=== PATIENT | male | born 1950 | race Caucasian/White ===

== ENCOUNTER 2024-11-20 11:05 | Inpatient (IN) | payer MEDICARE, OTHER ==
[~2024-11-20] VITALS: Ht 157.5 cm; Wt 57.2 kg
[2024-11-20] MEDS: IV NS 0.9% 500 ML BAG IV ONE (11:39)
[2024-11-20 11:52] LABS: BASOPHILS # (AUTO) 0.1 K/uL (0.0-0.2); BASOPHILS % (AUTO) 0.6 % (0.0-2.0); EOSINOPHILS # (AUTO) 0.1 K/uL (0.0-0.7); EOSINOPHILS % (AUTO) 1.6 % (0.0-6.0); HEMATOCRIT 42 % (39-51); HEMOGLOBIN 14.1 g/dL (13.5-17.5); LYMPHOCYTES % (AUTO) 12.4 % (20.0-44.0); MEAN CORPUSCULAR HEMOGLOBIN 30 PG (26.0-33.0); MEAN CORPUSCULAR HGB CONC 34 g/dl (31.0-36.0); MEAN CORPUSCULAR VOLUME 89 fL (80-96); MONOCYTES # (AUTO) 0.8 K/uL (0.1-1.30); MONOCYTES % (AUTO) 9.6 % (2.0-12.0); NEUTROPHILS # (AUTO) 6.1 K/uL (1.8-8.9); NEUTROPHILS % (AUTO) 75.8 % (43.0-81.0); PLATELET COUNT (AUTO) 199 K/uL (150-450); RED BLOOD CELL COUNT(AUTO) 4.74 MIL/uL (4.5-6.0); RED CELL DISTRIBUTION WIDTH 13.5 % (11.5-15.0); WHITE BLOOD COUNT (AUTO) 8.1 K/uL (4.3-11.0)
[2024-11-20 12:09] LABS: CALCIUM, SERUM 9.5 mg/dL (8.5-10.1); CARBON DIOXIDE 33 mmol/L (21-32); CHLORIDE 96 mmol/L (98-107); CREATININE 4.2 mg/dL (0.6-1.3); GLUCOSE 115 mg/dL (74-106); POTASSIUM 3.3 mmol/L (3.5-5.1); SODIUM SERUM 137 mmol/L (136-145); UREA NITROGEN, BLOOD 22 mg/dL (7-18)
[2024-11-20] MEDS ORDERED: DORZ10DR11 LEFTEYE (12:09)
[2024-11-20] MEDS ORDERED: FOLI0.8T2 PO (12:09)
[2024-11-20] MEDS ORDERED: DIFL5DRO LEFTEYE (12:09)
[2024-11-20] MEDS ORDERED: MIDO10TA PO (12:09)
[2024-11-20] MEDS ORDERED: ERYT3.5O9 LEFTEYE (12:09)
[2024-11-20] MEDS ORDERED: BRIM5DRO3 LEFTEYE (12:09)
[2024-11-20] MEDS ORDERED: VITA1TAB20 PO (12:09)
[2024-11-20] MEDS ORDERED: CARV12.5 PO (12:09)
[2024-11-20] MEDS ORDERED: GABA-532 PO (12:09)
[2024-11-20] MEDS ORDERED: SEVE800T8 PO (12:09)
[2024-11-20] MEDS ORDERED: METO25TA6 PO (12:09)
[2024-11-20] MEDS ORDERED: Z GUARD REMEDY 4 OZ OINT TP PRN (14:30)
[2024-11-20] MEDS ORDERED: ONDANSETRON HCL/PF 4 MG/2 ML VIAL IVP PRN (14:30)
[2024-11-20] MEDS ORDERED: ACETAMINOPHEN 325 MG TABLET PO PRN (14:30)
[2024-11-20] MEDS ORDERED: ZOLPIDEM TARTRATE 5 MG TABLET PO PRN (14:30)
[2024-11-20 14:51] VITALS: BP 146/66; TEMP 97.9; O2SAT 99
[2024-11-20 16:48] VITALS: BP_SYST 114; BP_SYST 83; BP_SYST 89; BP_DIAS 60; BP_DIAS 62; BP_DIAS 68
[2024-11-20] MEDS: GABAPENTIN 100 MG CAPSULE PO SCH (17:19)
[2024-11-20] MEDS: SEVELAMER CARBONATE 800 MG TABLET PO SCH (17:19)
[2024-11-20 20:00] VITALS: BP_SYST 119; BP_SYST 134; BP_SYST 97; BP_DIAS 54; BP_DIAS 63; BP_DIAS 74; TEMP 97.5; O2SAT 99
[2024-11-20] MEDS: ERYTHROMYCIN BASE OPHTH 3.5 GM TUBE LEFTEYE SCH (21:44)
[2024-11-21] VITALS: BP_SYST 119; BP_SYST 120; BP_DIAS 63; BP_DIAS 65; TEMP 97.5; TEMP 98.4; O2SAT 95; O2SAT 99
[2024-11-21 07:01] LABS: BASOPHILS % (AUTO) 0.8 % (0.0-2.0); EOSINOPHILS # (AUTO) 0.2 K/uL (0.0-0.7); EOSINOPHILS % (AUTO) 3.2 % (0.0-6.0); HEMATOCRIT 40 % (39-51); HEMOGLOBIN 13.6 g/dL (13.5-17.5); LYMPHOCYTES # (AUTO) 1.5 K/uL (0.8-4.8); LYMPHOCYTES % (AUTO) 28.9 % (20.0-44.0); MEAN CORPUSCULAR HEMOGLOBIN 30 PG (26.0-33.0); MEAN CORPUSCULAR HGB CONC 34 g/dl (31.0-36.0); MEAN CORPUSCULAR VOLUME 89 fL (80-96); MONOCYTES # (AUTO) 0.6 K/uL (0.1-1.30); MONOCYTES % (AUTO) 10.9 % (2.0-12.0); NEUTROPHILS % (AUTO) 56.2 % (43.0-81.0); PLATELET COUNT (AUTO) 179 K/uL (150-450); RED BLOOD CELL COUNT(AUTO) 4.54 MIL/uL (4.5-6.0); RED CELL DISTRIBUTION WIDTH 13.6 % (11.5-15.0); WHITE BLOOD COUNT (AUTO) 5.3 K/uL (4.3-11.0)
[2024-11-21 07:57] LABS: CALCIUM, SERUM 9.1 mg/dL (8.5-10.1); CREATININE 5.5 mg/dL (0.6-1.3); MAGNESIUM 2.6 mg/dL (1.8-2.4); PHOSPHORUS 4.2 mg/dL (2.5-4.9); POTASSIUM 3.6 mmol/L (3.5-5.1)
[2024-11-21] MEDS: TIMOLOL MAL/DORZOLAM HCL OPHTH 10 ML BOTTLE LEFTEYE SCH (08:10)
[2024-11-21] MEDS: BRIMONIDINE TARTRATE OPHT SOLN 5 ML BOTTLE LEFTEYE SCH (08:10)
[2024-11-21] MEDS: PANTOPRAZOLE 40 MG TABLET.DR PO SCH (08:17)
[2024-11-21] MEDS: VIT B CMPLX 3/FA/VIT C/BIOTIN 1 TAB TABLET PO SCH (08:17)
[2024-11-21 08:18] LABS: THYROID STIMULATING HORMONE 2.47 uIU/mL (0.358-3.74)
== END 2024-11-21 16:49 | disposition home or self-care (01) | DRG 73 ==
LOC: ER 11:10 → TELE 13:00
PROVIDERS: ADMIT Nurse Practitioner Family; ATTEND Internal Medicine
DX: G90.89 Other disorders of autonomic nervous system (principal); N18.6 End stage renal disease; I12.0 Hypertensive chronic kidney disease with stage 5 chronic kidney disease or end stage renal disease; E87.6 Hypokalemia; Z99.2 Dependence on renal dialysis; D63.1 Anemia in chronic kidney disease; G62.9 Polyneuropathy, unspecified; H40.9 Unspecified glaucoma; R53.1 Weakness; N25.0 Renal osteodystrophy
CPT/HCPCS: 36415; 70450-TC; 71045-TC; 80048-TC; 80061-TC; 83735-TC; 84100-TC; 84443-TC; 84484-TC; 85025-TC; 93307-TC; 97116-TC; 97530-TC; G0378; J7040